=== PATIENT | male | born 1990 | race Caucasian/White ===

== ENCOUNTER 2016-11-08 12:14 | Emergency (ER) | payer SELFPAY ==
[~2016-11-08] VITALS: Ht 175.2 cm; Wt 88.5 kg
[~2016-11-08 12:14] MED LIST: BACTRIM DS 8001 TA1 PO; CEFADROXIL500 M1 PO
[2016-11-08] MEDS ORDERED: Zofran4 MG PO (13:16)
== END 2016-11-08 13:48 | disposition home or self-care (01) ==
LOC: ED 12:14
DX: A08.4 Viral intestinal infection, unspecified (principal); F17.200 Nicotine dependence, unspecified, uncomplicated

== ENCOUNTER 2017-06-20 13:47 | Emergency (ER) | payer OTHER ==
[~2017-06-20] VITALS: Ht 175.2 cm; Wt 81.6 kg
[~2017-06-20 13:47] MED LIST changes: +Zofran4 MG PO
== END 2017-06-20 16:08 | disposition home or self-care (01) ==
LOC: ED 13:47
DX: S60.943A Unspecified superficial injury of left middle finger, initial encounter (principal); W31.89XA Contact with other specified machinery, initial encounter; Y93.89 Activity, other specified; Y92.89 Other specified places as the place of occurrence of the external cause; Y99.0 Civilian activity done for income or pay

== ENCOUNTER 2017-07-05 17:33 | Emergency (ER) | payer OTHER ==
[~2017-07-05] VITALS: Wt 83.9 kg
[2017-07-05] MEDS ORDERED: ZITHROMAX250 MG PO (19:25)
== END 2017-07-05 19:23 | disposition home or self-care (01) ==
LOC: ED 17:33
DX: J02.9 Acute pharyngitis, unspecified (principal)

== ENCOUNTER 2017-09-08 15:23 | Emergency (ER) | payer OTHER ==
[~2017-09-08] VITALS: Ht 175.2 cm; Wt 83.9 kg
[~2017-09-08 15:23] MED LIST changes: +ZITHROMAX250 MG PO
[2017-09-08] MEDS ORDERED: FLONASE ALLERG9.9 ML NAS (15:40)
[2017-09-08] MEDS ORDERED: CLARITIN10 MG PO (15:40)
[2017-09-08] MEDS ORDERED: ROBITUSSIN DM 105 ML PO (15:40)
[2017-09-08] MEDS ORDERED: ZITHROMAX250 MG PO (17:05)
== END 2017-09-08 17:08 | disposition home or self-care (01) ==
LOC: ED 15:23
DX: J18.1 Lobar pneumonia, unspecified organism (principal); F17.200 Nicotine dependence, unspecified, uncomplicated

== ENCOUNTER 2018-01-30 04:36 | Emergency (ER) | payer OTHER ==
[~2018-01-30] VITALS: Ht 172.7 cm; Wt 90.7 kg
[~2018-01-30 04:36] MED LIST changes: +CLARITIN10 MG PO; +FLONASE ALLERG9.9 ML NAS; +ROBITUSSIN DM 105 ML PO
[2018-01-30] MEDS ORDERED: CLINDAMYCIN150 MG PO (04:47)
[2018-01-30] MEDS ORDERED: IBU800 MG PO (04:52)
== END 2018-01-30 05:13 | disposition home or self-care (01) ==
LOC: ED 04:36
DX: K08.89 Other specified disorders of teeth and supporting structures (principal); Z79.899 Other long term (current) drug therapy

== ENCOUNTER 2018-06-06 04:33 | Emergency (ER) | payer OTHER ==
[~2018-06-06] VITALS: Ht 175.2 cm; Wt 95.7 kg
[~2018-06-06 04:33] MED LIST changes: +CLINDAMYCIN150 MG PO; +IBU800 MG PO
== END 2018-06-06 04:50 | disposition home or self-care (01) ==
LOC: ED 04:33
DX: B34.9 Viral infection, unspecified (principal); R61 Generalized hyperhidrosis; R42 Dizziness and giddiness; R53.83 Other fatigue

== ENCOUNTER 2022-05-31 03:16 | Emergency (ER) | payer OTHER ==
[~2022-05-31] VITALS: Ht 175.2 cm; Wt 108.9 kg
[2022-05-31] MEDS ORDERED: AMOX-CLAV 875-1 EACH PO (04:53)
== END 2022-05-31 04:56 | disposition home or self-care (01) ==
LOC: ED 03:16
DX: H66.91 Otitis media, unspecified, right ear (principal)

== ENCOUNTER 2023-01-17 14:22 | Emergency (ER) | payer OTHER ==
[~2023-01-17] VITALS: Ht 175.2 cm; Wt 95.3 kg
[~2023-01-17 14:22] MED LIST changes: +AMOX-CLAV 875-1 EACH PO
[2023-01-17] MEDS ORDERED: AMOX-CLAV 875-1 EACH PO (14:42)
== END 2023-01-17 14:50 | disposition home or self-care (01) ==
LOC: ED 14:22
DX: J02.0 Streptococcal pharyngitis (principal)